=== PATIENT | male | born 1970 | race Caucasian/White ===

== ENCOUNTER → 2024-10-02 07:30 | Outpatient (REF) | payer SELFPAY | LOC: HWRAD 07:30 | PROVIDERS: ATTENDING PHYSICIAN Family Medicine | DX: E78.5 Hyperlipidemia, unspecified (principal) | CPT/HCPCS: 75571 ==

== ENCOUNTER → 2024-10-02 07:33 | Outpatient (REF) | payer BC, SELFPAY | LOC: HWRAD 07:33 | PROVIDERS: ATTENDING PHYSICIAN Family Medicine | DX: D17.1 Benign lipomatous neoplasm of skin and subcutaneous tissue of trunk (principal) | CPT/HCPCS: 76604 ==

== ENCOUNTER 2025-02-07 05:50 | Day surgery (SDC) | payer BC, SELFPAY ==
[2025-02-07 06:19] VITALS: BP 159/104; BMI 30.5
[2025-02-07] MEDS: TYLENOL 1000 MG PO (06:22)
[2025-02-07] MEDS: NORMOSOL-R/PLASMALYTE-A 1000 IV (06:33)
--- NOTE | 2025-02-07 06:59 | W.SUR.PREOP ---
Pre-Operative Surgical Note
-
I have examined this patient prior to the performance of the scheduled procedure.
The patient's condition is unchanged from the time of the current History and
Physical and the patient is able to undergo the scheduled procedure.
--- NOTE | 2025-02-07 06:59 | HP.FOC2 ---
Focused History & Physical
Chief Complaint
HPI:
Chief Complaint: Right upper back lipoma
HPI / Indication for Planned Procedure: This is a 54-year-old male with a symptomatic right upper back lipoma
Relevant Past Medical History: Negative
Relevant Social History: Negative
Relevant Family History: Negative
Relevant Past Surgical History: Negative
Review of Systems
Review of Pertinent Systems: All Systems Negative
Medication
See Medication form for detailed medications: Yes
Medication List (including Herbals & OTC):
famotidine 20 mg tablet (Pepcid) 20 mg PO PRN PRN GERD 02/04/25
multivitamin 1 tab PO DAILY 02/04/25
rosuvastatin 10 mg tablet (Crestor) 10 mg PO HS 02/04/25
Medications Reviewed: Yes
Allergies and Reactions
Patient has Allergies: No
Noted Allergies and Reactions:
Allergy/AdvReac Type Severity Reaction Status Date / Time
No Known Allergies Allergy Verified 02/07/25 06:18
Pertinent Physical Exam
All Other Systems: Negative
Head/Neck: Normal
Lungs: Normal
Diagnosis / Assessment
This is a 54-year-old male with a symptomatic right upper back lipoma.
Plan / Procedure
Will plan for an open excision under MAC.
Anesthesia/Sedation to be done by Anesthesia Provider: Yes
[2025-02-07 08:07] VITALS: BP 130/85
[2025-02-07 08:15] VITALS: BP 143/90
--- NOTE | 2025-02-07 08:23 | W.IMMPOSTOP ---
Surgical Immed Post Op Note
-
Primary Surgeon: Raz Martin MD
Assisting Surgeon: None
Pre-op Diagnosis: Right upper back lipoma
Post-op Diagnosis: Right upper back intramuscular lipoma
Procedure Performed: Excision of a right upper back intramuscular lipoma
Anesthesia Type: General
Specimen / Cultures: Encapsulated lipoma (7 x 4 x 1-1/2 cm)
Estimated Blood Loss: 3 cc
Complications: None
Operative Findings: A 7 x 4 x 1.5 cm encapsulated lipoma was freed circumferentially from the overlying subcutaneous tissue and surrounding muscle. Wound closed in layers.
--- NOTE | 2025-02-07 08:26 | OR.RPT ---
Operative Report
Operative Report
Patient Name: Darren Mason
: 1970
Date of Operation: 02/07/2025
Preoperative Diagnosis: Right upper back lipoma
Postoperative Diagnosis: Right upper back intramuscular lipoma
Procedure(s):
Excision of a right upper back intramuscular lipoma lipoma
Surgeon(s):
Dr. Martin
Medical Management Trainer(s):
ELI Zhang
Anesthesia: MAC
Estimated Blood Loss: 3 cc
Urine Output: None
Drains/Lines/Implants: None
Specimens:
1. Lipoma
Indication for surgery:
This is a 54-year-old male with a lump on his right upper back that he is known about for several years and has become more symptomatic recently. After evaluation in the office they were diagnosed with a lipoma. After discussion of risk benefits
and alternatives they elected and were consented for surgery.
Operative Findings: A 7 x 4 x 1.5 cm encapsulated lipoma was freed circumferentially from the overlying subcutaneous tissue and surrounding muscle. Wound closed in layers.
Details of the operation:
The patient was brought to the operating room a placed in the left lateral decubitus position. After appropriate sedation by anesthesia, the area of the back was prepped and draped in the usual fashion. A linear incision over natural skin line was
made over the mass and carried down through the subcutaneous tissue. The Lipoma was identified and found to be encapsulated and intramuscular. The lipoma was freed circumferentially taking care not to violate the capsule and also preserve the
muscle fibers surrounding it. The specimen which measured roughly 7 x 4 x 1.5 cm was passed off the field. The cavity was irrigated and hemostasis was achieved. The space was closed with interrupted 3-0 Vicryl sutures. The dermis was then
approximated using interrupted 3-0 Vicryl sutures followed by a running 4-0 monocryl, followed by dermabond. All counts were correct at the end of procedure. The patient was then transferred to the PACU for recovery.
I was the attending physician and performed the procedure with assistance from the DIRECTOR OF ACCREDITATION above. I was present for all portions of the case, excluding skin closure
Raz Martin MD
[2025-02-07 08:30] VITALS: BP 139/89
== END 2025-02-07 09:00 | disposition home or self-care (01) ==
LOC: SDS 05:50
PROVIDERS: ATTENDING PHYSICIAN Surgery
DX: D17.1 Benign lipomatous neoplasm of skin and subcutaneous tissue of trunk (principal)
CPT/HCPCS: 21933; 88304